=== PATIENT | male | born 1965 | race Caucasian/White ===

== ENCOUNTER 2018-12-17 11:13 | Emergency (ER) | payer BC ==
--- OUTSIDE RECORDS SUMMARY | 2018-12-17 11:18 | XMS REPORT | Continuity of Care Document ---
:1965 External Reference #:[id number] Author Name Gato Christianson MD, FACS (transmitted by agent of provider Bushra Montemayor) Address [address] [place] [address] Care Team Providers Name Role Phone Tatiana Mcneill N.P. - Family Care Team Information Water/Wastewater Project Manager [phone] Problems Description No Information Available Social History Type Date Description Comments Sex Unknown ETOH Use Occasionally consumes alcohol Tobacco Use Start: Unknown Patient has never smoked Recreational Drug Use Denies Drug Use Smoking Status Reviewed: 12/13/18 Patient has never smoked Exercise Type/Frequency Exercises rarely Allergies, Adverse Reactions, Alerts Active Allergies Reaction Severity Comments Date Penicillin constipation 09/10/2018 Medications Active Medications SIG Qnty Indications Ordering Date Provider [facility] Hydrocortisone apply to affected 56gm Mayco Maher 12/12/2018 Maximum Strength area twice a day MD Kacey 1% Cream Loratadine once a day for Unknown 10mg Capsules allergies as needed Multivitamin Adult 1 by mouth every Unknown Tablets day History Medications Hydrocodone-Acetaminophen 1 or 2 tablets 15tabs Milagros [place] 11/18/2018 - 5-325mg Tablets by mouth every MD Emanuel Unknown 4-6 hours as needed for moderately severe pain Immunizations Description No Information Available Vital Signs Date Vital Result Comment 12/13/2018 3:46pm Heart Rate 78 /min Respiratory Rate 16 /min Body Temperature 98.7 F 12/12/2018 10:03am Heart Rate 72 /min Respiratory Rate 12 /min Body Temperature 97.6 F Results Description No Information Available Procedures Date Code Description Status 11/19/2018 88556 Repair Hernia Inguinal > 5Yrs, Reducible Completed 11/19/2018 45833 Repair Hernia Inguinal > 5Yrs, Reducible Completed Medical Devices Description No Information Available Encounters Type Date Location Provider Dx Diagnosis Office Visit 09/[facility]2018 [facility], K40.90 Unil inguinal 11:30a Of [facility] , CRISTINO hernia, w/o obst or gangr, not spcf as recur Assessments Date Code Description Provider 12/13/2018 K40.90 Unilateral inguinal hernia, without Gato Christianson MD, FACS obstruction or gangrene, 11/29/2018 K40.90 Unilateral inguinal hernia, without Gato Christianson MD, FACS obstruction or gangrene, 11/19/2018 K40.90 Unilateral inguinal hernia, without Zulema Jeffries , SIGN HANGER obstruction or gangrene, 11/19/2018 K40.90 Unilateral inguinal hernia, without Gato Christianson MD, FACS obstruction or gangrene, 10/28/2018 K40.90 Unilateral inguinal hernia, without VY Patino obstruction or gangrene, 10/28/2018 Z01.818 Encounter for other preprocedural Adriano Johnson, PA examination 09/13/2018 K40.90 Unilateral inguinal hernia, without Gato Christianson MD, FACS obstruction or gangrene, 06/19/2018 K40.90 Unilateral inguinal hernia, without Zulema Jeffries , SIGN HANGER obstruction or gangrene, not specified as recurrent Plan of Treatment Future Appointment(s):12/23/2018 9:00 am - Gato Christianson MD, FACS at [facility]12/13/2018 - Gato Christianson MD, FACSK40.90 Unilateral inguinal hernia, without obstruction or gangrene,Follow up:2 weeks Functional Status Description No Information Available Mental Status Description No Information Available Referrals Description No Information Available
--- OUTSIDE RECORDS SUMMARY | 2018-12-17 11:18 | XMS REPORT | Continuity of Care Document ---
:1965 External Reference #:[id number] Author Name Mayco Erazo MD (transmitted by agent of provider Elsy Ford) Address [address] [place] [address] Care Team Providers Name Role Phone Tatiana Mcneill N.P. - Family Care Team Information Furniture And Bedding Inspector [phone] Problems Description No Information Available Social History Type Date Description Comments Sex Unknown ETOH Use Occasionally consumes alcohol Tobacco Use Start: Unknown Patient has never smoked Recreational Drug Use Denies Drug Use Smoking Status Reviewed: 12/12/18 Patient has never smoked Exercise Type/Frequency Exercises rarely Allergies, Adverse Reactions, Alerts Active Allergies Reaction Severity Comments Date Penicillin constipation 09/10/2018 Medications Active Medications SIG Qnty Indications Ordering Date Provider [facility] Hydrocortisone apply to affected 56gm Mayco Maher 12/12/2018 Maximum Strength area MD Kacey 1% Cream Loratadine once a day for Unknown 10mg Capsules allergies as needed Multivitamin Adult 1 by mouth every Unknown Tablets day History Medications Hydrocodone-Acetaminophen 1 or 2 tablets 15tabs Milagros [place] 11/18/2018 - 5-325mg Tablets by mouth every MD Emanuel Unknown 4-6 hours as needed for moderately severe pain Immunizations Description No Information Available Vital Signs Date Vital Result Comment 12/12/2018 10:03am Heart Rate 72 /min Respiratory Rate 12 /min Body Temperature 97.6 F 11/29/2018 9:47am Heart Rate 66 /min BP Systolic Sitting 138 mmHg BP Diastolic Sitting 84 mmHg Respiratory Rate 12 /min Body Temperature 97.7 F Results Description No Information Available Procedures Date Code Description Status 11/19/2018 35973 Repair Hernia Inguinal > 5Yrs, Reducible Completed 11/19/2018 27254 Repair Hernia Inguinal > 5Yrs, Reducible Completed Medical Devices Description No Information Available Encounters Type Date Location Provider Dx Diagnosis Office Visit 09/13/2018 [facility] Gato Christianson, K40.90 Unil inguinal 11:30a Of [facility], FACS hernia, w/o obst or gangr, not spcf as recur Assessments Date Code Description Provider 11/29/2018 K40.90 Unilateral inguinal hernia, without Gato Christianson MD, FACS obstruction or gangrene, 11/19/2018 K40.90 Unilateral inguinal hernia, without Zulema Jeffries NP obstruction or gangrene, 11/19/2018 K40.90 Unilateral inguinal hernia, without Gato Christianson MD, FACS obstruction or gangrene, 10/28/2018 K40.90 Unilateral inguinal hernia, without VY Patino obstruction or gangrene, 10/28/2018 Z01.818 Encounter for other preprocedural VY Patino examination 09/13/2018 K40.90 Unilateral inguinal hernia, without Gato Christianson MD, FACS obstruction or gangrene, 06/19/2018 K40.90 Unilateral inguinal hernia, without Zulema Jeffries CLINICAL TRAINING COORDINATOR obstruction or gangrene, not specified as recurrent Plan of Treatment 11/29/2018 - Gato Christianson MD, FACSK40.90 Unilateral inguinal hernia, without obstruction or gangrene,Follow up:2 weeks Functional Status Description No Information Available Mental Status Description No Information Available Referrals Description No Information Available
--- OUTSIDE RECORDS SUMMARY | 2018-12-17 11:18 | XMS REPORT | Continuity of Care Document ---
:1965 External Reference #:[id number] Author Name Gato Christianson MD, FACS (transmitted by agent of provider Elsy Ford) Address [address] [place] [address] Care Team Providers Name Role Phone Tatiana Mcneill N.P. - Family Care Team Information Box Turner [phone] Problems Description No Information Available Social History Type Date Description Comments Sex Unknown ETOH Use Occasionally consumes alcohol Tobacco Use Start: Unknown Patient has never smoked Recreational Drug Use Denies Drug Use Smoking Status Reviewed: 11/29/18 Patient has never smoked Exercise Type/Frequency Exercises rarely Allergies, Adverse Reactions, Alerts Active Allergies Reaction Severity Comments Date Penicillin constipation 09/10/2018 Medications Active Medications SIG Qnty Indications Ordering Provider Date Loratadine once a day for Unknown 10mg Capsules allergies as needed Multivitamin Adult 1 by mouth every Unknown day Tablets History Medications Hydrocodone-Acetaminophen 1 or 2 tablets 15tabs Milagros [place] 11/18/2018 - 5-325mg Tablets by mouth every MD Emanuel Unknown 4-6 hours as needed for moderately severe pain Immunizations Description No Information Available Vital Signs Date Vital Result Comment 11/29/2018 9:47am Heart Rate 66 /min BP Systolic Sitting 138 mmHg BP Diastolic Sitting 84 mmHg Respiratory Rate 12 /min Body Temperature 97.7 F 10/28/2018 9:27am Height 74 inches 6'2" Weight 247.00 lb Heart Rate 72 /min BP Systolic Sitting 128 mmHg BP Diastolic Sitting 84 mmHg Respiratory Rate 16 /min Body Temperature 98.1 F BMI (Body Mass Index) 31.7 kg/m2 Results Description No Information Available Procedures Date Code Description Status 11/19/2018 [id number] Repair Hernia Inguinal > 5Yrs, Reducible Completed 11/19/2018 01636 Repair Hernia Inguinal > 5Yrs, Reducible Completed Medical Devices Description No Information Available Encounters Type Date Location Provider Dx Diagnosis Office Visit 09/13/2018 [facility] G[facility]on, K40.90 Unil inguinal 11:30a [facility], CRISTINO hernia, w/o obst or gangr, not spcf as recur Assessments Date Code Description Provider 11/29/2018 K40.90 Unilateral inguinal hernia, without Gato Christianson MD, FACS obstruction or gangrene, 11/19/2018 K40.90 Unilateral inguinal hernia, without Zulema Jeffries , ILANA obstruction or gangrene, 11/19/2018 K40.90 Unilateral inguinal hernia, without Gato Christianson MD, FACS obstruction or gangrene, 10/28/2018 K40.90 Unilateral inguinal hernia, without VY Patino obstruction or gangrene, 10/28/2018 Z01.818 Encounter for other preprocedural VY Patino examination 09/13/2018 K40.90 Unilateral inguinal hernia, without Gato Christianson MD, CRISTINO obstruction or gangrene, 06/19/2018 K40.90 Unilateral inguinal hernia, without Zulema Jeffries , MANAGER OUTPATIENT obstruction or gangrene, not specified as recurrent Plan of Treatment Future Appointment(s):12/13/2018 3:30 pm - Gato Christianson MD, FACS at [facility]11/29/2018 - Gato Christianson MD, FACSK40.90 Unilateral inguinal hernia, without obstruction or gangrene,Follow up:2 weeks Functional Status Description No Information Available Mental Status Description No Information Available Referrals Description No Information Available
[2018-12-17 11:24] VITALS: BP 133/88
--- NOTE | 2018-12-17 11:29 | UC ---
Skin Complaint HPI - HPI Summary HPI Summary: Patient is a 53yo male presenting with diffuse pruritic rash on lower back, lower abdomen, and upper thigh and buttocks. Patient states he had hernia surgery on 11/19/18. The rash began about one week ago. Its came gradually but has not improved or worsened in a couple days. He says he spoke with his surgeon who told him it is unlikely to be from anything pertaining to his surgery. Patient denies any new detergents, lotions, foods, or medications. Denies any SOB, difficulty breathing, and wheezing. Denies lip or tongue swelling. Patient has been using OTC cortisone cream and benadryl with little relief. - History of Current Complaint Chief Complaint: UCRash Time Seen by Provider: 12/17/18 11:18 Stated Complaint: RASH Hx Obtained From: Patient Onset/Duration: Gradual Onset, Lasting Weeks Timing: Constant Pain Intensity: 0 Associated Signs & Symptoms: Negative: Abdominal Pain - Allergy/Home Medications Allergies/Adverse Reactions: Allergies Allergy/AdvReac Type Severity Reaction Status Date / Time Penicillins AdvReac Constipatio Verified 12/17/18 11:19 n PMH/Surg Hx/FS Hx/Imm Hx - Surgical History Surgical History: Yes Surgery Procedure, Year, and Place: left wrist GANGLION. inguinal hernia repair 2019 - Family History Known Family History: Positive: Non-Contributory - Social History Alcohol Use: Occasionally Substance Use Type: None Smoking Status (MU): Never Smoked Tobacco Have You Smoked in the Last Year: No Review of Systems All Other Systems Reviewed And Are Negative: Yes Constitutional: Positive: Negative. Negative: Fever, Chills, Fatigue Skin: Positive: Rash - itchy Eyes: Positive: Negative Respiratory: Positive: Negative. Negative: Shortness Of Breath Cardiovascular: Positive: Negative Gastrointestinal: Positive: Negative Motor: Positive: Negative Neurological: Positive: Negative Physical Exam Triage Information Reviewed: Yes Appearance: Well-Appearing, No Pain Distress, Well-Nourished Vital Signs: Initial Vital Signs Temp 98.4 F 12/17/18 11:20 Pulse 82 12/17/18 11:20 Resp 16 12/17/18 11:20 BP 133/88 12/17/18 11:20 Pulse Ox 97 12/17/18 11:20 Vital Signs Reviewed: Yes Eyes: Positive: Conjunctiva Clear ENT: Positive: Hearing grossly normal Neck: Positive: Supple Neurological: Positive: Alert Psychological: Positive: Age Appropriate Behavior Skin: Positive: Rashes - diffuse erythematous raised plaques noted on anterior and posterior lower trunk and superior thighs. Course/Dx - Course Course Of Treatment: Discussed with patient that it is difficult to know what caused the rash, but we can treat the symptoms. Patient instructed to take prednisone as prescribed for relief of symptoms. May continue to use the over the counter cortisone cream and benadryl as directed for itching relief. If the rash worsens or does not resolve within a 7 days, follow up with PCP. Directed to go to the emergency department if patient experiences any lip swelling, tongue swelling, or difficulty breathing. Patient voiced understanding and agreed to treatment plan. - Differential Diagnoses - Skin Complaint Differential Diagnoses: Drug Rash, Urticaria - Diagnoses Provider Diagnosis: Pruritic dermatitis Discharge ED - Sign-Out/Discharge Documenting (check all that apply): Patient Departure All imaging exams completed and their final reports reviewed: No Studies - Discharge Plan Condition: Stable Disposition: HOME Prescriptions: predniSONE TAB* [Deltasone 20 MG TAB*] 60 mg PO DAILY #15 tab Patient Education Materials: Urticaria (ED), Acute Rash (ED) Referrals: Mikel CORBETT AERIAL APPLICATOR [facility] [Primary Care Provider] - If Needed Additional Instructions: As discussed, it is difficult to know what caused your rash, but we can treat your symptoms. Take prednisone as prescribed for relief of symptoms. You may continue to use the over the counter cortisone cream and benadryl as directed for itching relief. If the rash worsens or does not resolve within a 7 days, follow up with your primary care doctor. If you experience any lip swelling, tongue swelling, or difficulty breathing, go to the emergency room. - Billing Disposition and Condition Condition: STABLE Disposition: Home
== END 2018-12-17 11:58 | disposition home or self-care (01) ==
LOC: UCEAST 11:13
DX: L30.9 Dermatitis, unspecified (principal); Z88.0 Allergy status to penicillin
CPT/HCPCS: 99212; G0463